=== PATIENT | female | born 1995 | race Caucasian/White ===

== ENCOUNTER 2020-07-27 05:53 | Inpatient (IN) | payer OTHER ==
[~2020-07-27] VITALS: Ht 162.6 cm; Wt 70.5 kg
[2020-07-27] MEDS: LACTATED RINGERS 1,000 ML IV SCH ×3 (06:00→10:28)
[2020-07-27] MEDS ORDERED: LIDOCAINE 1%, 20ML ONE (06:12)
[2020-07-27] MEDS ORDERED: MISOPROSTOL 200 MCG TABLET ONE (06:12)
[2020-07-27] MEDS ORDERED: NEWBORN KIT ONE (06:12)
[2020-07-27] MEDS ORDERED: OXYTOCIN 30U/ 0.9% NaCL 500ML 500 ML ONE ×2 (06:12→13:17)
[2020-07-27] MEDS ORDERED: TERBUTALINE 1 MG/ML, 1ML SQ PRN (06:30)
[2020-07-27] MEDS ORDERED: D5%-LACTATED RINGERS 1,000 ML IV SCH (06:30)
[2020-07-27] MEDS ORDERED: TERBUTALINE 1 MG/ML, 1ML IVPush PRN (06:30)
[2020-07-27] MEDS ORDERED: OXYTOCIN 30U/ 0.9% NaCL 500ML 500 ML IV ONE (06:30)
[2020-07-27] MEDS ORDERED: FENTANYL PF 100 MCG/2ML IV PRN (06:30)
[2020-07-27] MEDS ORDERED: CALCIUM CARBONATE 500 MG TAB.CHEW PO PRN (06:30)
[2020-07-27] MEDS ORDERED: ONDANSETRON 2MG/ML, 2ML IVPush PRN (06:30)
[2020-07-27 06:42] LABS: BASOPHILS % (AUTO) 0 % (0-1); EOSINOPHILS % (AUTO) 0 % (1-7); LYMPHOCYTES % (AUTO) 13 % (22-44); MEAN CORPUSCULAR HEMOGLOBIN 31.8 pg (27.0-34.8); MEAN CORPUSCULAR HGB CONC 34.4 g/dL (32.4-35.8); MEAN PLATELET VOLUME 7.3 fL (7.4-10.4); MONOCYTES % (AUTO) 7 % (2-9); NEUTROPHILS % (AUTO) 80 % (42-75); PLATELET COUNT 198 x10^3/uL (130-400); RED BLOOD COUNT 3.52 x10^6/uL (3.82-5.3); RED CELL DISTRIBUTION WIDTH 13.9 % (9.6-15.2)
[2020-07-27 06:45] LABS: MD NO
[2020-07-27] MEDS ORDERED: FENTANYL PF 100 MCG/2ML ONE ×3 (07:59→10:16)
[2020-07-27] MEDS: FENTANYL PF 100 MCG/2ML IVPush PRN ×3 (08:01→10:27)
[2020-07-27] MEDS ORDERED: BUPIVACAINE 0.25% ONE (10:33)
[2020-07-27] MEDS ORDERED: FENTANYL/BUPIV./NS/PF 250 ML EPIDCONT ONE (10:35)
[2020-07-27] MEDS ORDERED: LACTATED RINGERS 1,000 ML IVBOLUS PRN (11:00)
[2020-07-27] MEDS ORDERED: FENTANYL/BUPIV./NS/PF 250 ML EPIDCONT SCH (11:00)
[2020-07-27] MEDS ORDERED: LACTATED RINGERS 1,000 ML IV SCH (11:00)
[2020-07-27] MEDS ORDERED: EPHEDRINE 50 MG/ML, 1ML IVPush PRN (11:00)
[2020-07-27] MEDS ORDERED: MISOPROSTOL 200 MCG TABLET PR PRN (13:00)
[2020-07-27] MEDS ORDERED: TRANEXAMIC ACID 1,000 MG in SODIUM CHLORIDE 0.9% 100 ML IVPB ONE (13:00)
[2020-07-27] MEDS ORDERED: SIMETHICONE 80 MG CHEW TAB PO PRN (13:00)
[2020-07-27] MEDS ORDERED: CARBOPROST TROMETHAMINE 250 MCG/ML, 1ML IM PRN (13:00)
[2020-07-27] MEDS ORDERED: ONDANSETRON 2MG/ML, 2ML IV PRN (13:00)
[2020-07-27] MEDS ORDERED: METHYLERGONOVINE 0.2 MG/ML IM PRN (13:00)
[2020-07-27] MEDS ORDERED: OXYcodone/APAP 5/325MG TABLET PO PRN (13:00)
[2020-07-27] MEDS: OXYTOCIN 30U/ 0.9% NaCL 500ML 500 ML IV SCH ×3 (13:46→23:29)
[2020-07-27 14:47] VITALS: BP 109/66
[2020-07-27] MEDS: IBUPROFEN 800 MG TABLET PO PRN ×2 (15:26→23:27)
[2020-07-27] MEDS: OXYcodone/APAP 5/325MG TABLET PO PRN ×2 (19:25→23:27)
[2020-07-27] MEDS: DOCUSATE 100 MG CAPSULE PO PRN (19:25)
[2020-07-27 19:45] VITALS: BP 118/67
[2020-07-27 21:21] LABS: BASOPHILS % (AUTO) 0 % (0-1); EOSINOPHILS % (AUTO) 0 % (1-7); LYMPHOCYTES % (AUTO) 9 % (22-44); MEAN CORPUSCULAR HEMOGLOBIN 31.8 pg (27.0-34.8); MEAN CORPUSCULAR HGB CONC 33.8 g/dL (32.4-35.8); MEAN PLATELET VOLUME 7.2 fL (7.4-10.4); MONOCYTES % (AUTO) 6 % (2-9); NEUTROPHILS % (AUTO) 84 % (42-75); PLATELET COUNT 172 x10^3/uL (130-400); RED BLOOD COUNT 3.28 x10^6/uL (3.82-5.3)
[2020-07-27 21:24] LABS: MD NO
[2020-07-27 23:55] VITALS: BP 111/73
[2020-07-28] MEDS: OXYTOCIN 30U/ 0.9% NaCL 500ML 500 ML IV SCH (00:33)
[2020-07-28 03:59] VITALS: BP 93/57
[2020-07-28] MEDS ORDERED: IBUP-1223 PO (06:59)
[2020-07-28 07:45] VITALS: BP 112/71
[2020-07-28] MEDS: DOCUSATE 100 MG CAPSULE PO PRN (07:51)
[2020-07-28] MEDS: IBUPROFEN 800 MG TABLET PO PRN (07:51)
[2020-07-28] MEDS ORDERED: PRENATAL VIT/IRON/FA 1 EACH TABLET PO SCH (09:00)
[2020-07-28 11:27] VITALS: BP 110/71
== END 2020-07-28 13:10 | disposition home or self-care (01) | DRG 807 ==
LOC: LDOP 05:53 → LDIP 06:13 → 2NW 14:47
PROVIDERS: ADMIT Obstetrics & Gynecology; ATTEND Obstetrics & Gynecology
PROC: 10E0XZZ Delivery of Products of Conception, External Approach (ICD-10-PCS; principal; 2020-07-27)
PROC: 10907ZC Drainage of Amniotic Fluid, Therapeutic from Products of Conception, Via Natural or Artificial Opening (ICD-10-PCS; 2020-07-27)
PROC: 3E0R3BZ Introduction of Anesthetic Agent into Spinal Canal, Percutaneous Approach (ICD-10-PCS; 2020-07-27)
PROC: 00HU33Z Insertion of Infusion Device into Spinal Canal, Percutaneous Approach (ICD-10-PCS; 2020-07-27)
DX: O62.9 Abnormality of forces of labor, unspecified (principal); Z37.0 Single live birth; Z3A.38 38 weeks gestation of pregnancy; Z20.822 Contact with and (suspected) exposure to COVID-19
CPT/HCPCS: 36415; 85025; 86592; 86850; 86900; 87635; G0378; J3010; J2590; J7120; J7121